=== PATIENT | female | born 2000 | race Caucasian/White ===

== ENCOUNTER 2022-05-13 19:12 | Emergency (ER) | payer MEDICAID | END 2022-05-13 22:27 | disposition home or self-care (01) | LOC: JD.ED 19:12 | DX: R10.31 Right lower quadrant pain (principal) | CPT/HCPCS: 36415; 74018; 74018-26; 80053; 81001; 81025; 85025; 86140; 99284 ==

== ENCOUNTER 2022-08-26 13:31 | Emergency (ER) | payer MEDICAID ==
[2022-08-26] MEDS ORDERED: Sodium Chloride 0.9% 10 ML Syringe FLUSH PRN (14:03)
[2022-08-26] MEDS ORDERED: Sodium Chloride 0.9% 1,000 ML IV STA (14:03)
[2022-08-26] MEDS ORDERED: HYDROmorphone 0.5 MG/0.5 ML Syringe IVPUSH ONE (14:08)
[2022-08-26] MEDS ORDERED: Ondansetron 4 MG/2 ML SDV IVPUSH ONE (14:08)
[2022-08-26] MEDS ORDERED: Ketorolac 30 MG/ML SDV IVPUSH ONE (14:09)
== END 2022-08-26 17:15 | disposition home or self-care (01) ==
LOC: JD.ED 13:31
DX: N13.2 Hydronephrosis with renal and ureteral calculous obstruction (principal)
CPT/HCPCS: 36415; 74176; 80053; 81001; 83690; 84703; 85025; 96361; 96374; 96375; 99284; J1170; J1885; J2405; J3490; J7030

== ENCOUNTER 2022-09-09 20:52 | Emergency (ER) | payer MEDICAID ==
[2022-09-09] MEDS ORDERED: Ondansetron 4 MG/2 ML SDV IVPUSH ONE (21:27)
[2022-09-09] MEDS ORDERED: HYDROmorphone 1 MG/ML Syringe IVPUSH STA (21:27)
[2022-09-09] MEDS ORDERED: Sodium Chloride 0.9% 1,000 ML IV SCH (21:30)
[2022-09-09] MEDS ORDERED: Iopamidol 755 Mg/ML 100 ML Bottle IVPUSH ONE (22:24)
[2022-09-09] MEDS ORDERED: Loperamide 2 MG Cap PO STA (23:35)
== END 2022-09-09 23:57 | disposition home or self-care (01) ==
LOC: JD.ED 20:52
DX: A08.4 Viral intestinal infection, unspecified (principal); Z86.16 Personal history of COVID-19
CPT/HCPCS: 36415; 74177; 80053; 81001; 81025; 83735; 85007; 85027; 96361; 96374; 96375; 99284; A9270; J1170; J2405; J7030; Q9967

== ENCOUNTER 2022-10-22 20:36 | Emergency (ER) | payer MEDICAID | END 2022-10-22 21:15 | disposition home or self-care (01) | LOC: JD.ED 20:36 | DX: G56.02 Carpal tunnel syndrome, left upper limb (principal); Z86.16 Personal history of COVID-19 | CPT/HCPCS: 99283 ==

== ENCOUNTER 2022-12-17 16:10 | Emergency (ER) | payer MEDICAID ==
[2022-12-17] MEDS ORDERED: Dexamethasone 6 MG TABLET PO ONE (18:02)
== END 2022-12-17 18:20 | disposition home or self-care (01) ==
LOC: JD.ED 16:10
DX: M65.871 Other synovitis and tenosynovitis, right ankle and foot (principal); Z79.899 Other long term (current) drug therapy; Z86.16 Personal history of COVID-19
CPT/HCPCS: 73630; 99283; J8540

== ENCOUNTER 2022-12-20 21:50 | Emergency (ER) | payer MEDICAID | END 2022-12-20 22:21 | disposition home or self-care (01) | LOC: JD.ED 21:50 | DX: M77.9 Enthesopathy, unspecified (principal); Z86.16 Personal history of COVID-19 | CPT/HCPCS: 93010; 99283; 99284 ==

== ENCOUNTER 2023-10-10 03:07 | Emergency (ER) | payer MEDICAID ==
[2023-10-10] MEDS: Sodium Chloride 0.9% 10 ML Syringe FLUSH PRN (03:45)
[2023-10-10] MEDS: Lactated Ringers 1,000 ML IV SCH (03:45)
[2023-10-10 03:49] LABS: BASOPHILS ABSOLUTE AUTO 0.1 K/mm3 (0.0-0.2); EOSINOPHILS ABSOLUTE AUTO 0.1 K/mm3 (0.0-0.4); EOSINOPHILS PERCENT AUTO 1.5 % (0.0-6.0); HEMATOCRIT 36.2 % (37.0-47.0); HEMOGLOBIN 12.4 gm/dl (12.0-16.0); IMMATURE GRAN ABSOLUTE AUTO 0.02 K/mm3 (0.00-0.05); IMMATURE GRAN PERCENT AUTO 0.2 % (0.0-0.4); LYMPHOCYTES ABSOLUTE AUTO 3.3 K/mm3 (1.0-4.8); LYMPHOCYTES PERCENT AUTO 39.9 % (24.0-44.0); MEAN CORPUSCULAR HEMOGLOBIN 29.5 pg (28.0-32.0); MEAN CORPUSCULAR HGB CONC 34.3 g/dl (32.0-36.0); MEAN PLATELET VOLUME 10.2 fl (9.4-12.3); MONOCYTES ABSOLUTE AUTO 0.6 K/mm3 (0.0-0.8); MONOCYTES PERCENT AUTO 7.7 % (0.0-8.0); NEUTROPHILS PERCENT AUTO 49.7 % (41.0-71.0); PLATELET COUNT,PLT 267 K/mm3 (150-400); RED BLOOD CELL COUNT 4.21 M/mm3 (4.10-5.30); WHITE BLOOD CELL COUNT,WBC 8.14 K/mm3 (3.9-11.3)
[2023-10-10 04:14] LABS: A/G RATIO 1.1 (1-2); ALANINE AMINOTRANSFERASE,ALT 14 U/L (14-59); ALBUMIN 3.4 g/dl (3.4-5.0); ALKALINE PHOSPHATASE 82 U/L (46-116); ANION GAP 17.1 (5-15); ASPARTATE AMNIOTRANSFERASE,AST 10 U/L (15-37); BILIRUBIN TOTAL 0.4 mg/dL (0.2-1.0); BLOOD UREA NITROGEN,BUN 12 mg/dL (7-18); CALCIUM 8.3 mg/dL (8.5-10.1); CARBON DIOXIDE,CO2 21 mEq/L (21-32); CHLORIDE,CL 101 mEq/L (98-107); CREATININE 0.6 mg/dL (0.55-1.02); ESTIMATED GFR 129 mL/min (>60); GLUCOSE RANDOM 91 mg/dL (70-99); LIPASE 16 U/L (16-77); POTASSIUM,K 3.1 mEq/L (3.5-5.1); PROTEIN TOTAL,TP 6.4 g/dl (6.4-8.2); SODIUM,NA 136 mEq/L (136-145)
[2023-10-10 04:50] LABS: APPEARANCE,URINE CLOUDY (Clear); BILIRUBIN,URINE 1+ (Negative); COLOR,URINE DARK YELLOW (Yellow); GLUCOSE,URINE NEGATIVE (Negative); KETONES,URINE TRACE (Negative); LEUKOCYTE ESTERASE,URINE NEGATIVE (Negative); NITRITE,URINE NEGATIVE (Negative); OCCULT BLOOD,URINE 3+ (Negative); PROTEIN,URINE 1+ (Negative); UROBILINOGEN,URINE 0.2 (0.2-1.0)
[2023-10-10 05:01] LABS: EPITHELIAL CELLS,URINE 0-5 /hpf (0-5); RBC,URINE >100 /hpf (0-5); WBC,URINE 0-5 /hpf (0-5)
[2023-10-10 05:02] LABS: BACTERIA,URINE FEW /hpf (FEW); MUCUS,URINE FEW /hpf (FEW)
== END 2023-10-10 06:59 | disposition home or self-care (01) ==
LOC: JD.ED 03:07
DX: O03.9 Complete or unspecified spontaneous abortion without complication (principal); Z86.16 Personal history of COVID-19
CPT/HCPCS: 36415; 76817; 80053; 81001; 83690; 84702; 85025; 96360; 96361; 99284; J3490; J7120

== ENCOUNTER 2024-06-24 21:01 | Emergency (ER) | payer MEDICAID ==
[2024-06-24] MEDS ORDERED: Sodium Chloride 0.9% 10 ML Syringe FLUSH PRN (21:14)
[2024-06-24 21:45] LABS: APPEARANCE,URINE CLEAR (Clear); BILIRUBIN,URINE NEGATIVE (Negative); COLOR,URINE YELLOW (Yellow); GLUCOSE,URINE NEGATIVE (Negative); KETONES,URINE NEGATIVE (Negative); LEUKOCYTE ESTERASE,URINE TRACE (Negative); NITRITE,URINE NEGATIVE (Negative); OCCULT BLOOD,URINE TRACE-INTACT (Negative); PROTEIN,URINE TRACE (Negative)
[2024-06-24 21:45] LABS: BASOPHILS ABSOLUTE AUTO 0.1 K/mm3 (0.0-0.2); BASOPHILS PERCENT AUTO 0.7 % (0.0-1.0); EOSINOPHILS ABSOLUTE AUTO 0.1 K/mm3 (0.0-0.4); HEMATOCRIT 42.7 % (37.0-47.0); HEMOGLOBIN 14.4 gm/dl (12.0-16.0); IMMATURE GRAN ABSOLUTE AUTO 0.02 K/mm3 (0.00-0.05); IMMATURE GRAN PERCENT AUTO 0.3 % (0.0-0.4); LYMPHOCYTES ABSOLUTE AUTO 2.8 K/mm3 (1.0-4.8); LYMPHOCYTES PERCENT AUTO 39.6 % (24.0-44.0); MEAN CORPUSCULAR HGB CONC 33.7 g/dl (32.0-36.0); MEAN CORPUSCULAR VOLUME 86.1 fl (83.0-99.0); MEAN PLATELET VOLUME 10.7 fl (9.4-12.3); MONOCYTES ABSOLUTE AUTO 0.6 K/mm3 (0.0-0.8); MONOCYTES PERCENT AUTO 8.5 % (0.0-8.0); NEUTROPHILS ABSOLUTE AUTO 3.5 K/mm3 (1.8-7.7); NEUTROPHILS PERCENT AUTO 49.9 % (41.0-71.0); PLATELET COUNT,PLT 309 K/mm3 (150-400); RED BLOOD CELL COUNT 4.96 M/mm3 (4.10-5.30); WHITE BLOOD CELL COUNT,WBC 7.09 K/mm3 (3.9-11.3)
[2024-06-24 22:01] LABS: BACTERIA,URINE NOT SEEN /hpf (FEW); EPITHELIAL CELLS,URINE 0-5 /hpf (0-5); MUCUS,URINE FEW /hpf (FEW); RBC,URINE NOT SEEN /hpf (0-5); WBC,URINE 0-5 /hpf (0-5)
[2024-06-24 22:06] LABS: A/G RATIO 1.2 (1-2); ALBUMIN 3.7 g/dl (3.4-5.0); ANION GAP 12.3 (5-15); BILIRUBIN TOTAL 0.3 mg/dL (0.2-1.0); BUN/CREATININE RATIO 8.8 (14-18); C-REACTIVE PROTEIN 0.5 mg/dL (<0.30); CALCIUM 8.7 mg/dL (8.5-10.1); CREATININE 0.8 mg/dL (0.55-1.02); EST CRCL DRUG DOSING (CG) 101.51 mL/min; POTASSIUM,K 3.3 mEq/L (3.5-5.1); PROTEIN TOTAL,TP 6.9 g/dl (6.4-8.2)
== END 2024-06-24 22:42 | disposition home or self-care (01) ==
LOC: JD.ED 21:01
DX: R10.31 Right lower quadrant pain (principal); Z86.16 Personal history of COVID-19; Z87.891 Personal history of nicotine dependence
CPT/HCPCS: 36415; 76830; 76830-26; 80053; 81001; 81025; 85025; 86140; 87086; 99283; 99284